=== PATIENT | male | born 1985 | race Caucasian/White ===

== ENCOUNTER 2018-03-11 14:45 | Emergency (ER) | payer OTHER ==
[2018-03-11] MEDS: TETRACAINE 0.5% OPHTH SOLN 4ML OD (15:23)
[2018-03-11] MEDS: LISSAMINE GREEN OPHTH 1.5 MG STRIP OD (15:23)
[2018-03-11] MEDS: ADACEL/BOOSTRIX VACCINE (DIPHTH/PERTUSS/ACELL/TETANUS)0.5ML SYR (90715) IM (16:40)
== END 2018-03-11 17:18 | disposition home or self-care (01) ==
LOC: M ED 14:45
DX: T15.02XA Foreign body in cornea, left eye, initial encounter (principal); W31.1XXA Contact with metalworking machines, initial encounter; Y92.89 Other specified places as the place of occurrence of the external cause; F17.210 Nicotine dependence, cigarettes, uncomplicated
CPT/HCPCS: 90715